=== PATIENT | male | born 1940 | race Caucasian/White ===

== ENCOUNTER 2021-08-20 11:30 | Day surgery (SDC) | payer MEDICARE ==
[2021-08-15 09:31] LABS: BASOPHILS % (AUTO) 0.3 % (0-1); EOSINOPHILS # (AUTO) 0.1 X10'3 (0-0.9); EOSINOPHILS % (AUTO) 1.1 % (0-6); HEMATOCRIT 37.9 % (42.0-52.0); LYMPHOCYTES # (AUTO) 1.3 X10'3 (1.1-4.8); LYMPHOCYTES % (AUTO) 17.8 % (21-51); MEAN CORPUSCULAR HEMOGLOBIN 23.2 PG (27.0-31.0); MEAN CORPUSCULAR HGB CONC 31.6 g/dL (33.0-36.5); MEAN CORPUSCULAR VOLUME 73.5 FL (78-98); MONOCYTES # (AUTO) 0.4 X10'3 (0-0.9); MONOCYTES % (AUTO) 5.7 % (2-12); NEUTROPHILS # (AUTO) 5.4 X10'3 (1.8-7.7); NEUTROPHILS % (AUTO) 75.1 % (42-75); PLATELET COUNT 161 X10'3 (140-440); RED BLOOD COUNT 5.17 X10'6 (4.70-6.10); RED CELL DISTRIBUTION WIDTH 15.9 % (11.5-14.5); WHITE BLOOD COUNT 7.2 X10'3 (4.5-11.0)
[2021-08-15 09:45] LABS: PARTIAL THROMBOPLASTIN TIME 30 SECONDS (22-32)
[2021-08-15 10:01] LABS: ALBUMIN 3.8 G/DL (3.4-5.0); ANION GAP 13 (8-16); BLOOD UREA NITROGEN 26 MG/DL (7-18); BUN/CREATININE RATIO 16.5 (5.4-32.0); CALCIUM 9.1 MG/DL (8.5-10.1); CHLORIDE 102 MMOL/L (99-107); CREATININE 1.58 MG/DL (0.60-1.10); GLUCOSE 268 MG/DL (70-104); POTASSIUM 4.4 MMOL/L (3.5-5.1); SODIUM 138 MMOL/L (135-145); TOTAL CARBON DIOXIDE 22.8 MMOL/L (24-32); eGFR 42 ML/MIN
[2021-08-20] VITALS (8 sets, daily range): BP systolic 117–157; BP diastolic 54–77
[~2021-08-20] VITALS: Ht 152.4 cm; Wt 94.0 kg
[2021-08-20] MEDS ORDERED: GLIP5TAB13 PO (12:30)
[2021-08-20] MEDS ORDERED: LISI20TA28 PO (12:30)
[2021-08-20] MEDS ORDERED: LIDOcaine/PRILOcaine 5gm cream TP ONE (12:45)
[2021-08-20] MEDS ORDERED: LORazepam 0.5 MG tablet PO PRN (13:00)
[2021-08-20] MEDS ORDERED: diphenhydrAMINE 25mg capsule PO PRN (13:00)
[2021-08-20] MEDS ORDERED: normal saline 1,000 ML IV SCH (13:00)
[2021-08-20] MEDS ORDERED: verapamil 2.5 mg/ml inj IV ONE (14:25)
[2021-08-20] MEDS ORDERED: nitroGLYCERIN-Tridil 50MG/D5W 250 ML IV ONE (14:25)
[2021-08-20] MEDS ORDERED: fentaNYL/PF 50MCG/1 ML 2ML syringe ONE (14:26)
[2021-08-20] MEDS ORDERED: iohexol 350MG/ML 100ml bottle IV ONE ×2 (14:26→15:01)
[2021-08-20] MEDS ORDERED: LIDOcaine 1% (10mg/ml)w/preservative injection 20ml MDV ONE (14:26)
[2021-08-20] MEDS ORDERED: midazolam 1 mg/ML 2ml injection ONE (14:26)
[2021-08-20] MEDS ORDERED: heparin 1,000unit/ml 10ml vial 10 ML ONE ×2 (14:26→15:02)
[2021-08-20] MEDS ORDERED: clopidogrel 300mg tablet ONE (15:07)
[2021-08-20] MEDS ORDERED: proCHLORperazine 10 MG/2 ml inj IV PRN (15:35)
[2021-08-20] MEDS ORDERED: ondansetron/PF 4mg/2ml inj IV PRN (15:35)
[2021-08-20] MEDS ORDERED: HYDROcodone/acetaminophen 10/325mg tab PO PRN (15:35)
[2021-08-20] MEDS ORDERED: HYDROcodone/acetaminophen 5mg/325mg tablet PO PRN (15:35)
[2021-08-20] MEDS ORDERED: OXAZEpam 15mg capsule PO PRN (15:35)
[2021-08-20] MEDS ORDERED: acetaminophen 325mg tablet PO PRN (15:35)
[2021-08-21] MEDS ORDERED: clopidogrel 75mg tablet PO SCH (08:00)
== END 2021-08-20 18:20 | disposition home or self-care (01) ==
LOC: SSTAY O 11:30
PROVIDERS: ATTEND Internal Medicine Interventional Cardiology
DX: I35.0 Nonrheumatic aortic (valve) stenosis (principal); I25.10 Atherosclerotic heart disease of native coronary artery without angina pectoris; E11.22 Type 2 diabetes mellitus with diabetic chronic kidney disease; I12.9 Hypertensive chronic kidney disease with stage 1 through stage 4 chronic kidney disease, or unspecified chronic kidney disease; N18.2 Chronic kidney disease, stage 2 (mild); E78.5 Hyperlipidemia, unspecified; K21.9 Gastro-esophageal reflux disease without esophagitis; H81.10 Benign paroxysmal vertigo, unspecified ear; D56.0 Alpha thalassemia; D69.49 Other primary thrombocytopenia; Z88.0 Allergy status to penicillin; Z79.899 Other long term (current) drug therapy; Z79.84 Long term (current) use of oral hypoglycemic drugs
CPT/HCPCS: 36415; 80048; 82948; 85025; 85610; 85730; 93005; 93454; 99152; 99153; C1751; C1769; C1874; C1894; C9600; J1644; J2001; J2250; J3010; J7030; Q0163; Q9967; A4620; J3490

== ENCOUNTER 2021-08-29 10:01 | Outpatient (CLI) | payer MEDICARE ==
[~2021-08-29 10:01] MED LIST: GLIP5TAB13 PO; LISI20TA28 PO
[2021-08-29 11:04] LABS: BASOPHILS % (AUTO) 0.4 % (0-1); EOSINOPHILS % (AUTO) 0.4 % (0-6); HEMATOCRIT 36.3 % (42.0-52.0); HEMOGLOBIN 11.6 g/dl (14.0-17.9); LYMPHOCYTES # (AUTO) 1.3 X10'3 (1.1-4.8); LYMPHOCYTES % (AUTO) 12.6 % (21-51); MEAN CORPUSCULAR HEMOGLOBIN 22.8 PG (27.0-31.0); MEAN CORPUSCULAR VOLUME 71.4 FL (78-98); MEAN PLATELET VOLUME 9.3 FL (7.4-10.4); MONOCYTES # (AUTO) 0.6 X10'3 (0-0.9); MONOCYTES % (AUTO) 5.8 % (2-12); NEUTROPHILS # (AUTO) 8.6 X10'3 (1.8-7.7); NEUTROPHILS % (AUTO) 80.8 % (42-75); PLATELET COUNT 182 X10'3 (140-440); RED BLOOD COUNT 5.08 X10'6 (4.70-6.10); RED CELL DISTRIBUTION WIDTH 15.3 % (11.5-14.5); WHITE BLOOD COUNT 10.7 X10'3 (4.5-11.0)
[2021-08-29 11:13] LABS: ALANINE AMINOTRANSFERASE 26 U/L (12-78); ALBUMIN 3.7 G/DL (3.4-5.0); ALKALINE PHOSPHATASE 83 IU/L (46-116); ANION GAP 11 (8-16); ASPARTATE AMINO TRANSFERASE 15 U/L (10-37); BLOOD UREA NITROGEN 27 MG/DL (7-18); BUN/CREATININE RATIO 16.7 (5.4-32.0); CALCIUM 8.7 MG/DL (8.5-10.1); CHLORIDE 103 MMOL/L (99-107); CREATININE 1.62 MG/DL (0.60-1.10); GLUCOSE 242 MG/DL (70-104); PARTIAL THROMBOPLASTIN TIME 31 SECONDS (22-32); POTASSIUM 3.9 MMOL/L (3.5-5.1); SODIUM 139 MMOL/L (135-145); TOTAL CARBON DIOXIDE 24.6 MMOL/L (24-32); TOTAL PROTEIN 7.5 G/DL (6.4-8.2); eGFR 41 ML/MIN
[2021-08-29] MEDS ORDERED: IODIXANOL 320 MG/ML INFUS..BTL 100ML IV ONE (11:27)
[2021-08-29] MEDS ORDERED: IODIXANOL 320 MG/ML INFUS..BTL 50ML IV ONE (11:28)
[2021-08-29] MEDS ORDERED: metoprolol tartrate 1mg/ml inj IV ONE (12:03)
[2021-08-29] MEDS ORDERED: atropine 0.1mg/ml 10ml syringe ONE (12:04)
[2021-08-29 12:10] VITALS: BP 136/56
== END 2021-08-29 23:59 | disposition home or self-care (01) ==
LOC: RAD 10:01
PROVIDERS: ATTEND Internal Medicine Cardiovascular Disease
DX: I35.0 Nonrheumatic aortic (valve) stenosis (principal); R06.02 Shortness of breath; I65.29 Occlusion and stenosis of unspecified carotid artery
CPT/HCPCS: 36415; 71046; 71275; 74174; 80053; 85025; 85610; 85730; 87635; 94010; 94727; 94729; C9803; J0461; Q9967; J3490

== ENCOUNTER 2021-12-08 21:29 | Emergency (ER) | payer MEDICARE ==
[~2021-12-08] VITALS: Ht 167.6 cm; Wt 90.0 kg
[~2021-12-08 21:29] MED LIST changes: +ASPI81TA52 PO; +ATOR40TA PO; +CLOP75TA15 PO
[2021-12-08] MEDS ORDERED: normal saline 1000ML IV soln IVB ONE (21:55)
[2021-12-08] MEDS ORDERED: tranexamic acid inj. 1,000 MG in 0.7% saline 100 ML PMX IV ONE (21:56)
[2021-12-08] MEDS ORDERED: iohexol 300mg/ml 100ml inj. ONE (22:00)
[2021-12-08 22:37] LABS: BASOPHILS # (AUTO) 0.1 X10'3 (0-0.2); BASOPHILS % (AUTO) 0.6 % (0-1); EOSINOPHILS # (AUTO) 0.2 X10'3 (0-0.9); EOSINOPHILS % (AUTO) 1.9 % (0-6); HEMATOCRIT 29.4 % (42.0-52.0); HEMOGLOBIN 9.6 g/dl (14.0-17.9); LYMPHOCYTES # (AUTO) 2.3 X10'3 (1.1-4.8); LYMPHOCYTES % (AUTO) 21.8 % (21-51); MEAN CORPUSCULAR HEMOGLOBIN 23.1 PG (27.0-31.0); MEAN CORPUSCULAR HGB CONC 32.6 g/dL (33.0-36.5); MEAN CORPUSCULAR VOLUME 70.7 FL (78-98); MEAN PLATELET VOLUME 9.4 FL (7.4-10.4); MONOCYTES % (AUTO) 9.5 % (2-12); NEUTROPHILS # (AUTO) 7.1 X10'3 (1.8-7.7); NEUTROPHILS % (AUTO) 66.2 % (42-75); PLATELET COUNT 131 X10'3 (140-440); RED BLOOD COUNT 4.17 X10'6 (4.70-6.10); RED CELL DISTRIBUTION WIDTH 16.2 % (11.5-14.5); WHITE BLOOD COUNT 10.7 X10'3 (4.5-11.0)
[2021-12-08 22:52] LABS: ALANINE AMINOTRANSFERASE 20 U/L (12-78); ALBUMIN 3.3 G/DL (3.4-5.0); ALBUMIN/GLOBULIN RATIO 0.9 (1.1-1.5); ALKALINE PHOSPHATASE 82 IU/L (46-116); ANION GAP 11 (8-16); ASPARTATE AMINO TRANSFERASE 25 U/L (10-37); BILIRUBIN,TOTAL 1.3 MG/DL (0.1-1.0); BLOOD UREA NITROGEN 30 MG/DL (7-18); BUN/CREATININE RATIO 21.3 (5.4-32.0); CALCIUM 8.5 MG/DL (8.5-10.1); CHLORIDE 103 MMOL/L (99-107); CREATININE 1.41 MG/DL (0.60-1.10); GLUCOSE 129 MG/DL (70-104); POTASSIUM 3.5 MMOL/L (3.5-5.1); SODIUM 137 MMOL/L (135-145); TOTAL CARBON DIOXIDE 22.8 MMOL/L (24-32); TOTAL PROTEIN 6.9 G/DL (6.4-8.2); eGFR 48 ML/MIN
[2021-12-09 00:22] LABS: APTT 30 SECONDS (22-32)
[2021-12-09 00:50] VITALS: BP 137/54
== END 2021-12-09 00:50 | disposition home or self-care (01) ==
LOC: ER 21:30
DX: S30.22XA Contusion of scrotum and testes, initial encounter (principal); D63.1 Anemia in chronic kidney disease; I25.10 Atherosclerotic heart disease of native coronary artery without angina pectoris; I11.0 Hypertensive heart disease with heart failure; I50.9 Heart failure, unspecified; E78.00 Pure hypercholesterolemia, unspecified; E11.9 Type 2 diabetes mellitus without complications; Z88.0 Allergy status to penicillin; Z79.82 Long term (current) use of aspirin; Z79.899 Other long term (current) drug therapy; X58.XXXA Exposure to other specified factors, initial encounter; Y93.89 Activity, other specified; Y92.89 Other specified places as the place of occurrence of the external cause; Y99.8 Other external cause status; Z95.0 Presence of cardiac pacemaker
CPT/HCPCS: 36415; 71260; 74177; 80053; 85025; 85610; 85730; 86885; 86900; 86901; 96365; 99285; J3490; J7030; Q9967